=== PATIENT | female | born 1980 | race Caucasian/White ===

== ENCOUNTER 2022-04-24 12:12 | Emergency (ER) | payer SELFPAY ==
[~2022-04-24] VITALS: Ht 154.9 cm; Wt 81.6 kg
--- NOTE | 2022-04-24 12:28 | ED Respiratory ---
General Chief Complaint: Respiratory Problems Stated Complaint: LT LEG DVT; SOB Source: patient, RN/MD Exam Limitations: no limitations History of Present Illness Date Seen by Provider: Apr 24, 2022 Time Seen by Provider: 12:17 Initial Comments 41-year-old female with PMH of polycystic kidney disease that had orthopedic surgery on her right shoulder 4 to 5 months ago coming in as a referral from ultrasound after she was diagnosed with a DVT in her left lower extremity. Started feeling short of breath over the weekend, started noticing swelling and pain in her left lower extremity on Wednesday. Went to a clinic in [facility] and an ultrasound was ordered which was obtained today. She does have a DVT in her left lower extremity. She is not on any medications daily. Has not been started on blood thinners as of yet. Denies any prior history of DVT or PE. Denies any cardiac history or pulmonary history. She is a smoker. Allergies and Home Medications Allergies Coded Allergies: aspirin (Verified Allergy, Unknown, 04/24/22) Patient Home Medication List Home Medication List Reviewed: Yes Apixaban (Eliquis) 5 Mg Tablet, 5 MG PO BID Prescribed by: JAIMIE ROB on 04/24/22 3387 Review of Systems Review of Systems Constitutional: No fever EENTM: no symptoms reported Respiratory: see HPI Cardiovascular: no symptoms reported Gastrointestinal: no symptoms reported Genitourinary: no symptoms reported Musculoskeletal: see HPI Skin: no symptoms reported Hematologic/Lymphatic: See HPI Immunological/Allergic: no symptoms reported All Other Systems Reviewed Negative Unless Noted: Yes Past Wptlmvf-Pdsfto-Pwttlh Hx Patient Social History Tobacco Use?: Yes Substance use?: Yes Alcohol Use?: No Past Medical History Surgeries: Yes Orthopedic, Tubal Ligation Physical Exam Vital Signs - First Documented 04/24/22 12:15 Temp 36.4 Pulse 96 Resp 18 B/P (MAP) 171/99 (123) Pulse Ox 99 O2 Delivery Room Air Capillary Refill : Height: '" Weight: lbs. oz. kg; BMI Method: General Appearance: WD/WN, no apparent distress Eyes: Bilateral Eye Normal Inspection HEENT: PERRL/EOMI, normal ENT inspection, pharynx normal Neck: non-tender, full range of motion, supple, normal inspection Respiratory: chest non-tender, lungs clear, normal breath sounds, no respiratory distress, no accessory muscle use Cardiovascular: regular rate, rhythm, no edema, no murmur Gastrointestinal: normal bowel sounds, non tender, soft; No distended, No guarding, No rebound Extremities: normal range of motion, normal capillary refill, calf tenderness, other (Very slight erythema to the left lower extremity compared to the right with minimal enlargement compared to the other extremity) Neurologic/Psychiatric: no motor/sensory deficits, alert, normal mood/affect Skin: normal color, warm/dry Lymphatic: no adenopathy Progress/Results/Core Measures Suspected Sepsis SIRS Temperature: Pulse: Respiratory Rate: Laboratory Tests 04/24/22 12:42: White Blood Count 9.6 Blood Pressure / Mean: Laboratory Tests 04/24/22 12:42: Creatinine 1.05, INR Comment 0.9, Platelet Count 358, Total Bilirubin 0.2 Results/Orders Lab Results Laboratory Tests Test 04/24/22 12:42 Range/Units White Blood Count 9.6 4.3-11.0 10^3/uL Red Blood Count 4.66 3.80-5.11 10^6/uL Hemoglobin 10.3 L 11.5-16.0 g/dL Hematocrit 33 L 35-52 % Mean Corpuscular Volume 71 L 80-99 fL Mean Corpuscular Hemoglobin 22 L 25-34 pg Mean Corpuscular Hemoglobin Concent 31 L 32-36 g/dL Red Cell Distribution Width 17.3 H 10.0-14.5 % Platelet Count 358 130-400 10^3/uL Mean Platelet Volume 10.0 9.0-12.2 fL Immature Granulocyte % (Auto) 0 % Neutrophils (%) (Auto) 61 42-75 % Lymphocytes (%) (Auto) 27 12-44 % Monocytes (%) (Auto) 7 0-12 % Eosinophils (%) (Auto) 4 0-10 % Basophils (%) (Auto) 1 0-10 % Neutrophils # (Auto) 5.9 1.8-7.8 10^3/uL Lymphocytes # (Auto) 2.6 1.0-4.0 10^3/uL Monocytes # (Auto) 0.7 0.0-1.0 10^3/uL Eosinophils # (Auto) 0.3 0.0-0.3 10^3/uL Basophils # (Auto) 0.1 0.0-0.1 10^3/uL Immature Granulocyte # (Auto) 0.0 0.0-0.1 10^3/uL Prothrombin Time 12.5 12.2-14.7 SEC INR Comment 0.9 0.8-1.4 Activated Partial Thromboplast Time 25 24-35 SEC Sodium Level 136 135-145 MMOL/L Potassium Level 4.2 3.6-5.0 MMOL/L Chloride Level 104 98-107 MMOL/L Carbon Dioxide Level 22 21-32 MMOL/L Anion Gap 10 5-14 MMOL/L Blood Urea Nitrogen 14 7-18 MG/DL Creatinine 1.05 0.60-1.30 MG/DL Estimat Glomerular Filtration Rate 68 BUN/Creatinine Ratio 13 Glucose Level 87 70-105 MG/DL Calcium Level 8.7 8.5-10.1 MG/DL Corrected Calcium 8.9 8.5-10.1 MG/DL Total Bilirubin 0.2 0.1-1.0 MG/DL Aspartate Amino Transf (AST/SGOT) 16 5-34 U/L Alanine Aminotransferase (ALT/SGPT) 13 0-55 U/L Alkaline Phosphatase 92 40-136 U/L Troponin I < 0.30 <0.30 NG/ML Pro-B-Type Natriuretic Peptide 151.9 H <125.0 PG/ML Total Protein 6.9 6.4-8.2 GM/DL Albumin 3.8 3.2-4.5 GM/DL My Orders Orders - JAIMIE ROB MD Ct Angio Chest W (04/24/22 12:23) Cbc With Automated Diff (04/24/22 12:25) Comprehensive Metabolic Panel (04/24/22 12:25) Protime With Inr (04/24/22 12:25) Partial Thromboplastin Time (04/24/22 12:25) Probnp Fs (04/24/22 12:25) Troponin I Fs (04/24/22 12:25) Ed Iv/Invasive Line Start (04/24/22 12:25) Ekg Tracing (04/24/22 12:25) Iohexol Injection (Omnipaque 350 Mg/Ml 1 (04/24/22 12:30) Received Contrast (Hold Metformin- Contr (04/24/22 12:30) Sodium Chloride Flush (Catheter Flush Sy (04/24/22 12:30) Ns (Ivpb) (Sodium Chloride 0.9% Ivpb Bag (04/24/22 12:30) Apixaban Tablet (Eliquis Tablet) (04/24/22 14:45) Medications Given in ED Current Medications Medications Dose Ordered Sig/Alejandro Route Start Time Stop Time Status Last Admin Dose Admin Iohexol 100 ml ONCE ONCE IV 04/24/22 12:30 04/24/22 12:33 DC 04/24/22 13:55 100 ML Sodium Chloride 10 ml NEEDED PRN IV 04/24/22 12:30 04/24/22 14:41 DC 04/24/22 13:56 10 ML Sodium Chloride 100 ml ONCE ONCE IV 04/24/22 12:30 04/24/22 12:33 DC 04/24/22 13:56 100 ML Vital Signs/I&O 04/24/22 04/24/22 04/24/22 12:15 12:15 14:39 Temp 36.4 Pulse 96 85 Resp 18 17 B/P (MAP) 171/99 (123) 166/90 Pulse Ox 99 100 O2 Delivery Room Air Room Air Room Air Capillary Refill : Progress Note : Progress Note 41-year-old female with above history presenting for shortness of breath in the setting of known DVT. ABCs were intact and vitals are stable on presentation. Well-appearing on exam and not in any type of respiratory distress. EKG with no acute ischemic changes and no signs of right heart strain. Basic labs reassuring including negative troponin, BNP only slightly elevated, almost unremarkable. CTA with bilateral segmental and subsegmental PEs. Her PESI puts her at a low risk and would be appropriate for outpatient management. We will place the patient on Eliquis. Given free 30-day trial card. Also gave her information on following up with [facility] so she can continue to get this paid for. ECG Initial ECG Impression Date: Apr 24, 2022 Initial ECG Impression Time: 12:26 Initial ECG Rate: 79 Initial ECG Rhythm: Normal Sinus Comment Narrow QRS, normal axis, no significant ST changes or T wave abnormalities Diagnostic Imaging Diagonstic Imaging: CT Plain Films/CT/US/NM/MRI: chest Comments PT STATUS: REG ER : 1980 PHYSICIAN: JAIMIE ROB MD ADMIT DATE: 04/24/22/ER FS Draft Date of Exam:04/24/22 CT ANGIO CHEST W PROCEDURE: CT angiography of the chest with contrast. TECHNIQUE: Multiple contiguous axial images were obtained through the chest after uneventful bolus administration of intravenous contrast. 3D reconstructed CTA MIP acquisitions were also performed. Auto Exposure Controls were utilized during the CT exam to meet ALARA standards for radiation dose reduction. INDICATION: DVT with chest pain and shortness of breath. COMPARISON: No prior studies are available for comparison. Evaluation of the pulmonary arterial system does show filling defects within both right and left lower lobe segmental and subsegmental branches consistent with pulmonary emboli. There is some thrombus identified in the segmental branches in the right middle lobe, as well. No central or saddle emboli are detected. No findings to suggest right heart strain are identified. The thoracic aorta is normal caliber. There is no dissection. No pericardial or pleural fluid is detected. Parenchymal evaluation does show the lungs to be clear. No infiltrates are seen. No nodule or mass is detected. Upper abdomen does show multiple cysts involving the liver and bilateral kidneys. IMPRESSION: 1. Findings consistent with bilateral pulmonary emboli. No evidence of right heart strain is identified. 2. Polycystic liver and kidney disease. Dictated on workstation # [id number] Dict: 04/24/22 1405 Trans: 04/24/22 1411 [facility] [id number] Interpreted by: GERARD BAUER MD Electronically signed by: Departure Impression Primary Impression: Pulmonary emboli Qualified Codes: I26.94 - Multiple subsegmental pulmonary emboli without acute cor pulmonale Additional Impression: DVT (deep venous thrombosis) Qualified Codes: I82.492 - Acute embolism and thrombosis of other specified deep vein of left lower extremity Disposition: 01 HOME, SELF-CARE Condition: Stable Departure-Patient Inst. Decision time for Depature: 14:35 Referrals: [facility]/EDDIE NO,LOCAL PHYSICIAN (PCP) Primary Care Physician Patient Instructions: Pulmonary Embolism (Blood Clot in the Lungs) (DC) Add. Discharge Instructions: You will take 10 mg of Eliquis twice a day for 1 week. After that you will take 5 mg twice a day for a week. Please schedule an appointment with [facility] as soon as possible. As long as you follow-up with them, they can help you with prescription drug pricing. Since you are starting a new blood thinner, be very careful to not have any falls or trauma. If you start vomiting blood or having black or bloody stools then we want you evaluated by doctor. Scripts Apixaban (Eliquis) 5 Mg Tablet 5 MG PO BID for 30 Days, #74 TAB TAKE 2 TABLETS BID X 7 DAYS, THEN 1 TABLET BID Prov: JAIMIE ROB MD 04/24/22 Work/School Note: Work Release Form Date Seen in the Emergency Department: Apr 24, 2022 Return to Work: Apr 27, 2022 Restrictions: No Restrictions JAIMIE ROB MD Apr 24, 2022 12:28
[2022-04-24] MEDS ORDERED: CATHETER FLUSH 10 ML SYR IV PRN (12:30)
[2022-04-24] MEDS ORDERED: NS 100 ML (IVPB) BAG IV ONE (12:30)
[2022-04-24] MEDS ORDERED: HOLD METFORMIN - RECEIVED CONTRAST 20 ML VIAL IV SCH (12:30)
[2022-04-24] MEDS ORDERED: IOHEXOL 350 MG/ML 100 ML (OMNIPAQUE 350) VIAL IV ONE (12:30)
[2022-04-24 12:57] LABS: BASOPHILS # (AUTO) 0.1 10^3/uL (0.0-0.1); BASOPHILS % (AUTO) 1 % (0-10); EOSINOPHILS # (AUTO) 0.3 10^3/uL (0.0-0.3); EOSINOPHILS % (AUTO) 4 % (0-10); HEMATOCRIT 33 % (35-52); HEMOGLOBIN 10.3 g/dL (11.5-16.0); LYMPHOCYTES # (AUTO) 2.6 10^3/uL (1.0-4.0); LYMPHOCYTES % (AUTO) 27 % (12-44); MEAN CORPUSCULAR HEMOGLOBIN 22 pg (25-34); MEAN CORPUSCULAR HGB CONC 31 g/dL (32-36); MEAN CORPUSCULAR VOLUME 71 fL (80-99); MONOCYTES # (AUTO) 0.7 10^3/uL (0.0-1.0); MONOCYTES % (AUTO) 7 % (0-12); NEUTROPHILS # (AUTO) 5.9 10^3/uL (1.8-7.8); NEUTROPHILS % (AUTO) 61 % (42-75); PLATELET COUNT 358 10^3/uL (130-400); WHITE BLOOD COUNT 9.6 10^3/uL (4.3-11.0)
[2022-04-24 13:07] LABS: INR 0.9 (0.8-1.4); PROTHROMBIN TIME PATIENT 12.5 SEC (12.2-14.7)
[2022-04-24 13:26] LABS: CHLORIDE 104 MMOL/L (98-107); POTASSIUM 4.2 MMOL/L (3.6-5.0); SODIUM 136 MMOL/L (135-145)
[2022-04-24 13:27] LABS: ALANINE AMINOTRANSFERASE 13 U/L (0-55); ALBUMIN 3.8 GM/DL (3.2-4.5); ALKALINE PHOSPHATASE 92 U/L (40-136); BILIRUBIN,TOTAL 0.2 MG/DL (0.1-1.0); BUN/CREATININE RATIO 13; CALCIUM 8.7 MG/DL (8.5-10.1); CARBON DIOXIDE 22 MMOL/L (21-32); CREATININE SERUM 1.05 MG/DL (0.60-1.30); GFR ESTIMATED 68; GLUCOSE 87 MG/DL (70-105); TOTAL PROTEIN 6.9 GM/DL (6.4-8.2)
--- NOTE | 2022-04-24 14:11 | Diagnostic Imaging Report ---
PROCEDURE: CT angiography of the chest with contrast. TECHNIQUE: Multiple contiguous axial images were obtained through the chest after uneventful bolus administration of intravenous contrast. 3D reconstructed CTA MIP acquisitions were also performed. Auto Exposure Controls were utilized during the CT exam to meet ALARA standards for radiation dose reduction. INDICATION: DVT with chest pain and shortness of breath. COMPARISON: No prior studies are available for comparison. Evaluation of the pulmonary arterial system does show filling defects within both right and left lower lobe segmental and subsegmental branches consistent with pulmonary emboli. There is some thrombus identified in the segmental branches in the right middle lobe, as well. No central or saddle emboli are detected. No findings to suggest right heart strain are identified. The thoracic aorta is normal caliber. There is no dissection. No pericardial or pleural fluid is detected. Parenchymal evaluation does show the lungs to be clear. No infiltrates are seen. No nodule or mass is detected. Upper abdomen does show multiple cysts involving the liver and bilateral kidneys. IMPRESSION: 1. Findings consistent with bilateral pulmonary emboli. No evidence of right heart strain is identified. 2. Polycystic liver and kidney disease. Dictated by: Dictated on workstation # [id number]
[2022-04-24] MEDS ORDERED: APIX5TAB PO ×2 (14:37→14:46)
[2022-04-24 14:39] VITALS: BP 166/90
[2022-04-24] MEDS ORDERED: APIXABAN 5 MG (ELIQUIS) TABLET PO ONE ×2 (14:45→15:00)
== END 2022-04-24 14:41 | disposition home or self-care (01) ==
LOC: ER FS 12:14
DX: I82.492 Acute embolism and thrombosis of other specified deep vein of left lower extremity (principal); I26.99 Other pulmonary embolism without acute cor pulmonale; F17.200 Nicotine dependence, unspecified, uncomplicated; Z79.01 Long term (current) use of anticoagulants; Z28.310 Unvaccinated for COVID-19
CPT/HCPCS: 36415; 71275; 80053; 83880; 84484; 85025; 85610; 85730; 93005; Q9967